=== PATIENT | male | born 1995 | race Caucasian/White ===

== ENCOUNTER 2017-03-11 21:52 | Emergency (ER) | payer OTHER ==
[~2017-03-11] VITALS: Ht 190.5 cm; Wt 118.2 kg
[~2017-03-11 21:52] MED LIST: ADDERALL5 MG; MULTI VITAMINS1 TAB PO; NORCO 325 MG-51 TAB PO; ROBAXIN 50500 MG/TAB PO; ROBINUL1 MG; SINGULAIR 110 MG/TAB PO; ULTRAM 50MG TAB50 MG PO; ZYRTEC 10MG10 MG PO
[2017-03-11 21:54] VITALS: BP 138/74; PULSE 92; TEMP 98.5
[2017-03-11] MEDS ORDERED: DOXYCYCLINE 10100 MG PO (22:34)
== END 2017-03-11 23:06 | disposition home or self-care (01) ==
LOC: COL.ER 21:52
DX: L02.415 Cutaneous abscess of right lower limb (principal); L72.9 Follicular cyst of the skin and subcutaneous tissue, unspecified; L03.115 Cellulitis of right lower limb; M54.9 Dorsalgia, unspecified; G89.29 Other chronic pain

== ENCOUNTER 2017-07-13 12:20 | Emergency (ER) | payer OTHER ==
[~2017-07-13] VITALS: Ht 190.5 cm; Wt 117.5 kg
[~2017-07-13 12:20] MED LIST changes: +DOXYCYCLINE 10100 MG PO
[2017-07-13 12:26] VITALS: BP 133/65; TEMP 98.5
[2017-07-13] MEDS ORDERED: ADDERALL XR30 MG PO (13:01)
[2017-07-13 13:20] VITALS: PULSE 96
== END 2017-07-13 13:21 | disposition home or self-care (01) ==
LOC: COL.ER 12:20
DX: J02.9 Acute pharyngitis, unspecified (principal); F90.9 Attention-deficit hyperactivity disorder, unspecified type

== ENCOUNTER → 2017-11-25 | Outpatient (CLI) | payer OTHER ==
[~2017-11-25] MED LIST changes: +ADDERALL XR30 MG PO
== END ==
LOC: COL.RAD 13:31
DX: R10.31 Right lower quadrant pain (principal)
CPT/HCPCS: Q9967